=== PATIENT | female | born 1950 | race Caucasian/White ===

== ENCOUNTER → 2018-03-14 | Outpatient (CLI) | payer MEDICARE, OTHER ==
[2018-03-14 16:23] LABS: BASOPHILS ABSOLUTE AUTO 0.07 K/mm3 (0.00-0.23); BASOPHILS PERCENT AUTO 1 % (0-2); EOSINOPHILS ABSOLUTE AUTO 0.38 K/mm3 (0.00-0.68); EOSINOPHILS PERCENT AUTO 3 % (0-6); Hematocrit 34.3 % (33.0-51.0); Hemoglobin 11.3 g/dL (11.5-16.0); IMMATURE GRAN ABSOLUTE AUTO 0.08 K/mm3 (0.00-0.10); IMMATURE GRAN PERCENT AUTO 1 % (0-1); LYMPHOCYTES ABSOLUTE AUTO 2.01 K/mm3 (0.84-5.20); LYMPHOCYTES PERCENT AUTO 17 % (21-46); MONOCYTES ABSOLUTE AUTO 1.19 K/mm3 (0.16-1.47); MONOCYTES PERCENT AUTO 10 % (4-13); Mean Corpuscular HGB Conc 32.9 g/dL (31.5-36.5); Mean Corpuscular Volume 94 fL (80-100); Mean Platelet Volume 11.3 fL (9.1-12.4); NEUTROPHILS ABSOLUTE AUTO 8.45 K/mm3 (1.96-9.15); NEUTROPHILS PERCENT AUTO 69 % (41-73); Platelet Count 248 K/mm3 (150-400); RDW Coefficient Variation 13.2 % (11.7-14.2); RDW Standard Deviation 45.2 fL (35.1-46.3); Red Blood Cell Count 3.65 M/mm3 (3.80-5.20); White Blood Cell Count 12.18 K/mm3 (4.00-11.30)
[2018-03-14 16:39] LABS: Alanine Aminotransfer (ALT/SGP 32 U/L (12-78); Albumin, Blood 3.7 g/dL (3.4-5.0); Alk Phos 81 U/L (40-126); Anion Gap 12 mmol/L (6-16); Aspartate Aminotrans (AST/SGOT 24 U/L (12-37); Bilirubin, Total 0.4 mg/dL (0.1-1.0); Blood Urea Nitrogen 15 mg/dL (8-24); Bun/Creatinine Ratio 17.4 (12.0-20.0); CO2, Blood 27 mmol/L (21-32); Calcium, Blood 8.9 mg/dL (8.5-10.1); Chloride, Blood 101 mmol/L (98-108); Creatinine, Blood 0.86 mg/dL (0.40-1.00); Globulin, Blood 3.8 g/dL (2.2-4.0); Glomerular Filtration Rate >60 (60-); Glucose, Blood 108 mg/dL (70-99); Potassium, Blood 3.9 mmol/L (3.5-5.5); Sodium, Blood 140 mmol/L (136-145); Total Protein, Blood 7.5 g/dL (6.4-8.2)
[2018-03-14 16:40] LABS: Troponin I <0.017 ng/mL (0.000-0.040)
== END | disposition home or self-care (01) ==
LOC: LAB SHORT 16:20
PROVIDERS: Physician Assistant
DX: R55 Syncope and collapse (principal); R00.2 Palpitations
CPT/HCPCS: 80053; 84484; 85025

== ENCOUNTER → 2019-05-12 | Outpatient (CLI) | payer MEDICARE, OTHER ==
[2019-05-14 15:07] LABS: HPV 16 Negative (Negative); HPV 18 Negative (Negative); HPV OTHER HR TYPES Negative (Negative)
== END | disposition home or self-care (01) ==
LOC: LAB SHORT 19:20 → LAB 19:20
PROVIDERS: Nurse Practitioner Women's Health
DX: Z12.4 Encounter for screening for malignant neoplasm of cervix (principal)
CPT/HCPCS: 87624; G0123

== ENCOUNTER → 2019-06-17 | Outpatient (CLI) | payer MEDICARE, OTHER | END | disposition home or self-care (01) | LOC: LAB SHORT 07:57 → PLD 07:57 | DX: N95.0 Postmenopausal bleeding (principal) | CPT/HCPCS: 88305 ==

== ENCOUNTER 2019-08-31 11:53 | Day surgery (SDC) | payer MEDICARE, OTHER ==
[~2019-08-31] VITALS: Ht 157.5 cm; Wt 82.0 kg
[~2019-08-31 11:53] MED LIST: LEVO-T50 MC1 PO; OMEPRAZOLE20 MG; Prinivil10 MG PO; SERT25 PO; SIMV40 PO
== END 2019-08-31 13:51 | disposition home or self-care (01) ==
LOC: ORSCSDS 11:53
PROVIDERS: Internal Medicine Gastroenterology
PROC: 0DBE8ZX Excision of Large Intestine, Via Natural or Artificial Opening Endoscopic, Diagnostic (ICD-10-PCS; principal; 2019-08-31 13:00)
PROC: 0DB68ZX Excision of Stomach, Via Natural or Artificial Opening Endoscopic, Diagnostic (ICD-10-PCS; principal; 2019-08-31 13:00)
DX: K30 Functional dyspepsia (principal); K44.9 Diaphragmatic hernia without obstruction or gangrene; K21.9 Gastro-esophageal reflux disease without esophagitis; K29.00 Acute gastritis without bleeding; K64.8 Other hemorrhoids; Z86.010 Personal history of colon polyps; I10 Essential (primary) hypertension; F41.9 Anxiety disorder, unspecified; G47.33 Obstructive sleep apnea (adult) (pediatric); R19.4 Change in bowel habit; Z87.891 Personal history of nicotine dependence; Z79.82 Long term (current) use of aspirin; Z79.899 Other long term (current) drug therapy
CPT/HCPCS: 88305; 88342; J2704

== ENCOUNTER → 2021-11-26 | Outpatient (CLI) | payer MEDICARE | END | disposition home or self-care (01) | LOC: LAB SHORT 08:35 | DX: D36.10 Benign neoplasm of peripheral nerves and autonomic nervous system, unspecified (principal) | CPT/HCPCS: 88305 ==

== ENCOUNTER → 2022-05-18 | Outpatient (CLI) | payer MEDICARE, OTHER ==
[2022-05-20 14:38] LABS: Stool Occult Bld Immuno 1 Negative (NEGATIVE); Stool Occult Bld Immuno 2 Negative (NEGATIVE)
== END | disposition home or self-care (01) ==
LOC: LAB 11:00 → LAB SHORT 11:00
PROVIDERS: Internal Medicine Gastroenterology
DX: R10.30 Lower abdominal pain, unspecified (principal)
CPT/HCPCS: 82274

== ENCOUNTER 2024-04-05 07:23 | Day surgery (SDC) | payer MEDICARE, OTHER ==
[~2024-04-05] VITALS: Ht 157.5 cm; Wt 89.4 kg
[2024-04-05] VITALS (9 sets, daily range): BP systolic 106–159; BP diastolic 60–106
[~2024-04-05 07:23] MED LIST changes: +Aspir 8181 MG PO; +ERGO50000 PO; +ICAPS AREDS2 T1 EACH PO; +METO25ER PO; -OMEPRAZOLE20 MG; +OMEPRAZOLE20 MG PO; -SERT25 PO; +SERT50 PO; -SIMV40 PO; +ZOCOR20 MG PO
[2024-04-05] MEDS ORDERED: Verapamil HCL 2.5 MG/ML 2ML Injection ONE (07:26)
[2024-04-05] MEDS ORDERED: Heparin Sodium 1000 Units/ML 10ML MDV ONE (07:27)
[2024-04-05] MEDS ORDERED: NS 250 ML IV ONE (07:27)
[2024-04-05] MEDS ORDERED: NS 1,000 ML IV ONE ×2 (07:27→10:16)
[2024-04-05 07:58] LABS: BASOPHILS ABSOLUTE AUTO 0.04 K/mm3 (0.00-0.23); BASOPHILS PERCENT AUTO 1 % (0-2); EOSINOPHILS ABSOLUTE AUTO 0.19 K/mm3 (0.00-0.68); EOSINOPHILS PERCENT AUTO 2 % (0-6); Hematocrit 38.2 % (33.0-51.0); Hemoglobin 12.4 g/dL (11.5-16.0); IMMATURE GRAN ABSOLUTE AUTO 0.05 K/mm3 (0.00-0.10); IMMATURE GRAN PERCENT AUTO 1 % (0-1); LYMPHOCYTES ABSOLUTE AUTO 1.64 K/mm3 (0.84-5.20); LYMPHOCYTES PERCENT AUTO 20 % (21-46); MONOCYTES ABSOLUTE AUTO 0.68 K/mm3 (0.16-1.47); MONOCYTES PERCENT AUTO 8 % (4-13); Mean Corpuscular HGB 30.6 pg (26.0-34.0); Mean Corpuscular HGB Conc 32.5 g/dL (31.5-36.5); Mean Corpuscular Volume 94 fL (80-100); Mean Platelet Volume 11.2 fL (9.1-12.4); NEUTROPHILS ABSOLUTE AUTO 5.65 K/mm3 (1.96-9.15); NEUTROPHILS PERCENT AUTO 69 % (41-73); Platelet Count 207 K/mm3 (150-400); RDW Coefficient Variation 13.4 % (11.7-14.2); RDW Standard Deviation 47.2 fL (35.1-46.3); Red Blood Cell Count 4.05 M/mm3 (3.80-5.20); White Blood Cell Count 8.25 K/mm3 (4.00-11.30)
[2024-04-05 08:12] LABS: International Normalized Ratio 0.96; Prothrombin Time Results 10.3 Sec (9.7-11.5)
[2024-04-05 08:15] LABS: Calcium, Blood 8.7 mg/dL (8.5-10.1); Creatinine, Blood 0.7 mg/dL (0.40-1.00)
[2024-04-05] MEDS ORDERED: FentaNYL Citrate 50 MCG/ML 2 ML Injection ONE (10:16)
[2024-04-05] MEDS ORDERED: Midazolam HCl 1MG / ML 2ML Vial ONE (10:16)
--- NOTE | 2024-04-05 11:05 | NUR ---
ASSUMED CARE OF PT POST PROCEDURE. PT AWAKE AND CONVERSING APPROPRIATELY; DENIES CHEST PAIN POST PROCEDURE. MONITOR SR 70'S, B/P 143/73, SPO2 95 % RA. R RAIAL SITE NO SWELLING/HEMATOMA, TR BAND IN PLACE; RUE POSITIVE PLEUTH POST TR BAND PLACEMENT.
--- NOTE | 2024-04-05 12:35 | NUR ---
TR BAND FULLY DEFLATED, NO SWELLING/HEMATOMA.
--- NOTE | 2024-04-05 13:15 | NUR ---
R RADIAL SITE UNCHANGED AFTER TR BAND DEFALTED.
--- NOTE | 2024-04-05 13:30 | NUR ---
PT AMB TO BATHRROM, GAIT STEADYL; SITE UNCHANGED WITH ACTIVITY.
--- NOTE | 2024-04-05 13:40 | NUR ---
PT DRESSED SELF WITHOUT ISSUE, TR BAND REMOVED, CLOTH DOT AND WRIST IMMOBILIZER PLACED; IV REMOVED-CANNULA INTACT.
--- NOTE | 2024-04-05 13:53 | NUR ---
PT RECEIVED DISCHARGE INSTRUCTIONS, MED LIST AND AFTER CARE INSTRUCTIONS; VERBALIZED GOOD UNDERSTANDING. PT LEFT FACIITY VIA W/C, CONDITION STABLE.
== END 2024-04-05 13:53 | disposition home or self-care (01) ==
LOC: MHTC 07:23
PROVIDERS: Internal Medicine Interventional Cardiology
DX: I25.118 Atherosclerotic heart disease of native coronary artery with other forms of angina pectoris (principal); I10 Essential (primary) hypertension; I44.7 Left bundle-branch block, unspecified; G47.33 Obstructive sleep apnea (adult) (pediatric); E78.5 Hyperlipidemia, unspecified; E03.9 Hypothyroidism, unspecified; Z79.82 Long term (current) use of aspirin; Z79.899 Other long term (current) drug therapy
CPT/HCPCS: 76937; 80048; 85025; 85610; 93458; 99152; C1769; C1887; C1894; J1644; J2250; J3010; J7030; J7050; Q9967

== ENCOUNTER 2025-01-21 09:22 | Day surgery (SDC) | payer OTHER ==
[~2025-01-21] VITALS: Ht 157.5 cm; Wt 86.5 kg
[~2025-01-21 09:22] MED LIST changes: +Lactated Ringer's 1,000 ML IV ONE
[2025-01-21] MEDS ORDERED: Lactated Ringer's 1,000 ML IV ONE (11:09)
[2025-01-21] MEDS ORDERED: propofoL 50 ML IV ONE ×2 (11:11→11:46)
[2025-01-21 12:44] VITALS: BP 158/74
== END 2025-01-21 12:25 | disposition home or self-care (01) ==
LOC: ORSCSDS 09:22
PROVIDERS: Internal Medicine Gastroenterology
PROC: 0DJ08ZZ Inspection of Upper Intestinal Tract, Via Natural or Artificial Opening Endoscopic (ICD-10-PCS; principal; 2025-01-21 10:45)
PROC: 0DBM8ZX Excision of Descending Colon, Via Natural or Artificial Opening Endoscopic, Diagnostic (ICD-10-PCS; principal; 2025-01-21 10:45)
PROC: 0DBK8ZX Excision of Ascending Colon, Via Natural or Artificial Opening Endoscopic, Diagnostic (ICD-10-PCS; principal; 2025-01-21 10:45)
DX: R19.4 Change in bowel habit (principal); K62.5 Hemorrhage of anus and rectum; R14.0 Abdominal distension (gaseous); R10.84 Generalized abdominal pain; R13.10 Dysphagia, unspecified; D12.2 Benign neoplasm of ascending colon; D12.4 Benign neoplasm of descending colon; K57.30 Diverticulosis of large intestine without perforation or abscess without bleeding; K44.9 Diaphragmatic hernia without obstruction or gangrene; E78.5 Hyperlipidemia, unspecified; Z86.0100 Personal history of colon polyps, unspecified; K21.9 Gastro-esophageal reflux disease without esophagitis; I10 Essential (primary) hypertension; Z79.82 Long term (current) use of aspirin; Z79.899 Other long term (current) drug therapy
CPT/HCPCS: 88305; J2704; J7120

== ENCOUNTER 2025-08-23 09:07 | Day surgery (SDC) | payer OTHER ==
[2025-08-23] VITALS (10 sets, daily range): BP systolic 113–140; BP diastolic 61–73
[~2025-08-23] VITALS: Ht 154.9 cm; Wt 88.8 kg
[~2025-08-23 09:07] MED LIST changes: +AMBIEN10 MG PO; +Calcium Ascorb500 MG PO; -ERGO50000 PO; +GLUCHON PO; -Lactated Ringer's 1,000 ML IV ONE; +PRESERVISION A1 EAC1 PO; +SIME80CH PO; +Vitamin D1000 UNI1 PO
[2025-08-23] MEDS ORDERED: Chlorhexidine Mouth Care 15 ML UDC MT SCH (09:20)
[2025-08-23] MEDS ORDERED: CeFAZolin Sodium 2,000 MG in NS 100 ML IV SCH ×2 (09:20→20:00)
[2025-08-23] MEDS ORDERED: Ropivacaine 0.5% HCl/Pf 123.125 MG,EPINEPHrine HCL 0.25 MG,Ketorolac Tromethamine 15 MG... INFIL SCH (09:20)
[2025-08-23] MEDS ORDERED: Tranexamic Acid 100 ML IV SCH (09:20)
--- NOTE | 2025-08-23 10:05 | NUR ---
Ambulatory in Day Surgery. History, Chart, Medications and Allergies reviewed before start of procedure. Lungs clear T/O to Auscultation. Patient confirms NPO status and agrees with scheduled surgery. Pre-Op teaching done. Pt verbalizes understanding. Patient reports completing Chlorhexadine shower X2 prior to admission to hospital.
[2025-08-23] MEDS ORDERED: HYDROmorphone HCl/Pf 1MG SYR IV PRN ×3 (10:40→12:45)
[2025-08-23] MEDS ORDERED: FLU VACC TS2025(65UP)/MF59C/PF 45 MCG/0.5 ML SYRINGE IM SCH (10:40)
[2025-08-23] MEDS ORDERED: Metoclopramide HCl 5MG / ML 2ML Vial IV PRN ×2 (10:45→12:45)
[2025-08-23] MEDS ORDERED: Magnesium Hydroxide Conc 10 ML UDC PO PRN (10:45)
[2025-08-23] MEDS ORDERED: Ondansetron HCl 2 MG / ML 2ML Vial IV PRN ×2 (10:50→12:40)
[2025-08-23] MEDS ORDERED: Ketorolac Tromethamine 15mg Vial IV SCH (12:00)
[2025-08-23] MEDS ORDERED: Midazolam HCl 1MG / ML 2ML Vial ONE (12:07)
[2025-08-23] MEDS ORDERED: Albuterol 2.5 MG/3 ML VIAL INH PRN (12:40)
[2025-08-23] MEDS ORDERED: FentaNYL Citrate 50 MCG/ML 2 ML Injection IV PRN ×2 (12:40→12:45)
[2025-08-23] MEDS ORDERED: Ketorolac Tromethamine 30mg Vial ONE (13:27)
--- NOTE | 2025-08-23 13:47 | NUR ---
08/23/25 1347 Emy Tracy ALL COUNTS CORRECT.
--- NOTE | 2025-08-23 18:47 | NUR ---
SHIFT SUMMARY PATIENT ALERT AND INTERACTIVE. PATIENT IS HOPEFUL TO GO HOME. PATIENT HAD SOME LIGHTHEADEDNESS WHEN WORKING WITH THERAPY AND SOME NUMBNESS STILL IN HER LEG. VSS DURING EPISODE. PAIN CONTROLLED. ICE TO KNEE WHEN AT REST. PATIENT ABLE TO AMBULATE WITH WALKER TO BR AND BACK.
--- NOTE | 2025-08-23 19:11 | NUR ---
DISCHARGE PATIENT REQUESTING TO DISCHARGE. PATIENT ABLE TO AMBULATE WITH STAND BY ASSIST. NO LIGHTHEADEDNESS WITH AMBULATION. DISCHARGE INSTRUCTIONS REVIEWED WITH PATIENT AND . PATIENT TAKEN OUT VIA WHEELCHAIR. BELONGINGS SENT WITH PATIENT.
[2025-08-23] MEDS ORDERED: Misc. Capsule PO SCH (21:00)
[2025-08-24] MEDS ORDERED: Cholecalciferol 1000 Unit Tablet (=25MCG) PO SCH (09:00)
== END 2025-08-23 19:11 | disposition home or self-care (01) ==
LOC: ORSCMMR 09:07 → ORD 10:00 → SURS 14:25 → ORSCMMR 19:11
PROVIDERS: Orthopaedic Surgery
PROC: 0SRD0JA Replacement of Left Knee Joint with Synthetic Substitute, Uncemented, Open Approach (ICD-10-PCS; principal; 2025-08-23 12:00)
DX: M17.12 Unilateral primary osteoarthritis, left knee (principal); I10 Essential (primary) hypertension; K21.9 Gastro-esophageal reflux disease without esophagitis; G47.33 Obstructive sleep apnea (adult) (pediatric); Z79.899 Other long term (current) drug therapy; E78.5 Hyperlipidemia, unspecified; Z79.82 Long term (current) use of aspirin
CPT/HCPCS: 73560-LT; 97110; 97161; 97530; A9270; C1776; J0166; J0690; J0735; J1885; J2250; J2704; J2795; J7120